=== PATIENT | female | born 1940 | race Caucasian/White ===

== ENCOUNTER 2017-08-05 11:18 | Inpatient (IN) | payer MEDICARE ==
--- NOTE | 2017-08-05 13:39 | RAD ---
FRONTAL RADIOGRAPH OF THE PELVIS: Date: 08-05-17 Comparison: None. History: Fall, right hip pain. FINDINGS: The right femoral neck is foreshortened suggesting an impaction fracture. There is heterotopic bone a nd osteophyte formation in the region of the greater trochanter on the right. The pelvic ring appears intact. Neither hip appears dislocated. No widening of the sacroiliac joints or pubic symphysis. IMPRESSION: Findings suggesting an impaction fracture or the right femoral neck. The configuration is somewhat di fficult to elucidate on this examination secondary to rotation and degenerative change. A CT examinat ion may be beneficial to evaluate further. POS: [facility]
--- NOTE | 2017-08-05 13:41 | RAD ---
TWO VIEWS RIGHT HIP: Date: 08-05-17 Comparison: None. History: Fall, pain. FINDINGS: There is abnormal obliquely oriented lucency on frontal imaging in the region of the femoral neck and at the medial base of the greater trochanter on the right, suspicious for impaction fracture. Of not e, detailed assessment is limited secondary to heterotopic bone and degenerative osteophyte formation in the region of the greater trochanter. No evidence for dislocation. IMPRESSION: Findings suspicious for a femoral neck fracture. CT examination is suggested for full characterizatio n. POS: [facility]
--- NOTE | 2017-08-05 13:43 | RAD ---
RIGHT TIBIA AND FIBULA TWO VIEWS: History: Fall. Comparison: None. FINDINGS: Bones are osteopenic/osteoporotic. No displaced fracture of the tibia or fibula is appreciated. IMPRESSION: No displaced tibia or fibula fracture. POS: C
--- NOTE | 2017-08-05 13:43 | RAD ---
RIGHT HUMERUS TWO VIEWS: History: Fall. Comparison: 2012 FINDINGS: Humerus appears to be intact. No displaced fracture. Subacromial osteophyte is similar. IMPRESSION: No fracture of the humerus. POS: C
--- NOTE | 2017-08-05 13:51 | RAD ---
RIGHT FEMUR TWO VIEWS: History: Fall. Comparison: None. FINDINGS: Please see pelvic radiograph. There appears to be an intertrochanteric fracture of the right femur w ith minimal angulation. Remainder of the femur is intact. IMPRESSION: Intertrochanteric fracture of the right femur with minimal angulation.
[2017-08-05 14:27] LABS: #Eosinphils 0.1 thou/uL (0.0-0.7); #Monocytes 0.9 thou/uL (0.11-0.59); %Basophils 0.1 % (0.0-1.0); %Eosinophils 0.5 % (0.0-10.0); %Lymphocytes 7.5 % (21.0-51.0); %Monocytes 7.3 % (0.0-10.0); %Neutrophils 84.6 % (42.0-75.0); Hemoglobin 12.5 g/dL (12.0-16.0); Mean Corpuscular HGB CONC 33.4 g/dL (32.0-36.0); Mean Corpuscular Hemoglobin 32.1 pg (27.0-31.0); Mean Corpuscular Volume 96.1 fl (81.0-99.0); Mean Platelet Volume 7.3 fL (7.4-10.4); Platelet Count 181 thou/uL (130-400); RBC Distribution Width 11.7 % (11.5-14.5); Red Blood Cell (RBC) Count 3.89 mill/uL (4.20-5.40)
[2017-08-05 14:50] LABS: ALT (SGPT) 15 U/L (8-55); AST (SGOT) 17 U/L (5-34); Alkaline Phosphatase 63 U/L (40-150); Anion Gap 14 mmol/L (10-20); BUN (Urea Nitrogen) 14 mg/dL (9.8-20.1); Bilirubin, Total 0.3 mg/dL (0.2-1.2); Calc. Creatinine Clearance 0 mL/min (70-130); Calcium 10.1 mg/dL (7.8-10.44); Carbon Dioxide 26 mmol/L (23-31); Chloride 101 mmol/L (98-107); Estimated GFR-MDRD 76; Globulin 3.1 g/dL (2.4-3.5); Glucose 129 mg/dL (83-110); Potassium 4.1 mmol/L (3.5-5.1); Protein, Total 7.1 g/dL (6.0-8.3); Sodium 137 mmol/L (136-145)
[2017-08-05] MEDS ORDERED: Morphine 4 MG/ML VIAL IV PRN (15:13)
[2017-08-05] MEDS ORDERED: Morphine 4 MG/ML VIAL SLOW IVP PRN (15:13)
[2017-08-05] MEDS ORDERED: hydrALAZINE 20 MG/ML VIAL SLOW IVP PRN (15:13)
[2017-08-05] MEDS ORDERED: Dextrose 50% Abboject 50 ML SYRINGE SLOW IVP PRN (15:13)
[2017-08-05] MEDS ORDERED: Dextrose 5% in Water 1,000 ML IV PRN (15:13)
[2017-08-05] MEDS ORDERED: Ondansetron ODT 4 MG TAB PO PRN (15:13)
[2017-08-05 15:37] LABS: Magnesium 1.7 mg/dL (1.6-2.6); Phosphorus 2.8 mg/dL (2.3-4.7)
--- NOTE | 2017-08-05 16:19 | HP ---
DATE OF ADMISSION: 08/05/2017 ADMITTING PHYSICIAN: Dr. Capone. CONSULTING PHYSICIAN: Dr. Abbasi. CHIEF COMPLAINT: Right hip fracture. HISTORY OF PRESENT ILLNESS: Mrs. Carney is a 77-year-old female who was at [employer] today when she reports that she stubbed her toe and lost her balance and fell landing on her right side. She report s that she landed on her right hip as well as her right arm and felt immediate pain in both. She rep orts her pain as 8/10 in her right arm and 3-4/10 in her right groin. She was brought by ground EMS to [place] [facility] [facility] ED where she was evaluated and found to have a right impacted femoral neck fracture. X -ray of her right humerus was negative. The patient also reported some pain initially in her distal right leg. X-ray of this was negative as well. Orthopedic Surgery was consulted and Trauma Services was asked to admit. Patient denies head injury or loss of consciousness. She denies abdominal pain, chest pain, shortnes s of breath. She denies syncope or presyncope. PAST MEDICAL HISTORY: Patient reports past medical history of type 2 diabetes, hypertension, hyperli pidemia, and hypothyroidism. The patient also reports a history of gastrointestinal bleeding x2. HOME MEDICATIONS: Patient reports the following home medications; Crestor 10 mg once daily, metformi n 1000 mg once daily, diltiazem 240 mg once daily, Lasix 20 mg once daily, potassium chloride 20 mEq once daily, Synthroid 100 mcg once daily, and lisinopril 5 mg daily. PAST SURGICAL HISTORY: The patient reports a history of thyroidectomy, breast biopsy, appendectomy, cholecystectomy as well as hysterectomy. She also reports a history of having a bleeding vessel caut erized during a colonoscopy and another one cauterized during upper endoscopy. SOCIAL HISTORY: The patient denies alcohol or drug use. The patient reports a [id number] history of smoking. She reports quitting in 2013. FAMILY HISTORY: Significant for father with Alzheimer's disease. Mother's history is noncontributor y. PSYCHIATRIC HISTORY: The patient denies any significant psychiatric history. ALLERGIES: The patient reports an allergy to CELEBREX. She reports that this medication makes her i tch. REVIEW OF SYSTEMS: A 10 point review of systems was negative except as mentioned in the HPI. PHYSICAL EXAMINATION: VITAL SIGNS: BP 127/61, pulse 80, respirations 19, O2 sat 96% on 2 liters. GENERAL APPEARANCE: Patient is a late middle-aged adult female lying in bed. She is in no acute dis tress. HEENT: Normocephalic and atraumatic. EYES: Pupils are equal, round, and reactive to light and acco mmodation. Extraocular movements intact. EARS: Atraumatic. NOSE: Nares patent. No blood or disc harge. MOUTH: Oropharynx is pink and moist. Dentition is intact. NECK: She has no cervical spine tenderness. She does have some tenderness to palpation of the muscl es laterally on the right side of her neck. She feels pain when she turns her head to the right. He r trachea is midline. RESPIRATORY: Her breath sounds are clear to auscultation bilaterally with normal effort. CARDIOVASCULAR: She has regular S1, S2. No murmurs, gallops or rubs. Normal rate and rhythm. ABDOMEN: Soft, nontender, nondistended. She has active bowel sounds. EXTREMITIES: Patient is neurovascularly intact x4. Her radial and dorsalis pedis pulses are 2+ bila terally. Upper and lower extremity strength is 5/5 bilaterally. She does have pain in her right hum erus with movement of her arm at the shoulder. She has no pain with movement of the arm at the elbow . She has no appreciable bony abnormality between the shoulder, elbow or humerus. None of these are tender to palpation. Her right leg is somewhat foreshortened and externally rotated. NEUROLOGIC: The patient has GCS of 15. She is alert and oriented x3. She has no focal deficits. LABORATORY DATA: Hematology: WBC is 13.0, hemoglobin 12.5, hematocrit 37.4, platelets are 181. Echo naya: Sodium 137, potassium 4.1, chloride 101, bicarbonate 26, BUN 14, creatinine 0.74, glucose 12 9. Her liver function tests are normal. IMAGING: X-ray of the humerus negative for fracture. X-ray of the right femur showing intertrochant lasha fracture of the right femur with minimal angulation. X-ray of the right tibia and fibula shows no displaced tibia or fibular fracture. X-ray of the right hip confirms a femoral neck fracture. Re commending a CT exam for full characterization. This is also confirmed with x-ray of the pelvis, whi is also recommending CT exam for further characterization. ASSESSMENT AND PLAN: 1. Status post mechanical fall from ground level. 2. Right intertrochanteric femur fracture. 3. Acute traumatic pain. 4. Right arm pain. 5. History of diabetes, present on admission. 6. History of hypertension, present on admission. 7. History of hypothyroidism. 8. History of gastrointestinal bleeding x2. PLAN: Plan will be to admit the patient to the surgical floor. She will likely go to the OR with Dr Elle Abbasi tomorrow. In the meantime, we will start her on a regular diet and make her n.p.o. after midnight with sips of water per medications. We will authorize patient's pain control; however, we will avoid NSAIDs given her history of GI bleeding. Postoperatively, she will need physical and occu pational therapy as well as a rehab screen. Gastritis and DVT prophylaxis will be initiated. Chemic al DVT prophylaxis will be withheld given history of a GI bleed. The patient was examined and discussed along with Dr. Capone in the ER. Dr. Capone agrees with the ass essment and plan.
[2017-08-05] MEDS ORDERED: Acetaminophen 1,000 MG in Premix Bag 1 BAG IVPB SCH (16:45)
[2017-08-05 17:03] LABS: INR-International Normal Ratio 1.1; PTT 31.1 SEC (22.9-36.1); Prothrombin Time 14.1 SEC (12.0-14.7)
[2017-08-05] MEDS: Sodium Chloride 0.9% 1,000 ML IV SCH (17:29)
[2017-08-05] MEDS: traMADol HCl 50 MG TAB PO SCH ×2 (17:47→23:20)
[2017-08-05] MEDS: Acetaminophen 500 MG TAB PO SCH ×2 (17:47→23:20)
[2017-08-05] MEDS: Morphine 4 MG/ML VIAL SLOW IVP PRN ×2 (17:57→20:39)
--- NOTE | 2017-08-05 19:40 | RAD ---
AP VIEW OF THE CHEST: 08/05/17 INDICATION: Fall. Preoperative chest radiograph. COMPARISON: None. FINDINGS: Lungs are clear. There are calcified lymph nodes in the right hilar region and mediastinum. There are vascular calcifications in the aortic arch. Heart size is normal. No pleural effusion or pneumothora x is evident. There is mild pleural parenchymal scarring involving both lung apices. IMPRESSION: No acute abnormality. POS: [facility]
[2017-08-05] MEDS: Famotidine 20 MG TAB PO SCH (19:53)
--- NOTE | 2017-08-05 19:56 | RAD ---
THREE VIEWS OF THE RIGHT SHOULDER: 08/05/17 INDICATION: Right shoulder pain after fall. COMPARISON: None. FINDINGS: There is a small rey of bone overlying the right greater tuberosity suspicious for focus of heterot opic ossification; however, a small greater tuberosity fracture cannot be entirely excluded. No addit ional acute osseous abnormality is evident. There is prominent inferior projecting acromial spur whic h may predispose the symptoms of impingement. There are calcified lymph nodes within the right hilar region and mediastinum. There is mild degenerative change of the glenohumeral and AC joint. IMPRESSION: 1. No definite acute osseous abnormality. 2. Ossific density overlying the right greater tuberosity is most suspicious for focus of hetero topic ossification. 3. Prominent inferior projecting acromial spur may predispose symptoms of impingement. 4. Findings of prior granulomatous disease. POS: [facility]
[2017-08-05] MEDS ORDERED: Prevnar 13-Val Conj/PF 0.5 ML SYRINGE IM ONE (20:00)
--- NOTE | 2017-08-05 22:28 | CON ---
DATE OF CONSULTATION: 08/05/2017 REQUESTING PHYSICIAN: Erik Capone D.O. CONSULTING PHYSICIAN: José Antonio Abbasi M.D. REASON FOR CONSULTATION: Right hip intertrochanteric fracture. HISTORY OF PRESENT ILLNESS: Florinda is a 77-year-old white female that was admitted to the trauma servi ce earlier today after she fell from a standing height, landing on her right side. She had a mechani masood fall remembers the events before during and after her fall. She had immediate onset of pain in t he right groin. Plain radiographs obtained in the emergency room demonstrated a vertical shear inter trochanteric fracture of the right hip extending from right mid cervical region down to the lesser tr ochanter with varus angulation. She has been admitted to the trauma service and our service was cons ulted for definitive orthopedic management of this problem. She also has right shoulder pain, second kamilah complaint and humeral plan films have been obtained, but no fracture has been identified. PAST MEDICAL HISTORY: Significant for diabetes type 2, hyperlipidemia, and hypothyroidism. PAST SURGICAL HISTORY: She has had thyroidectomy, cholecystectomy, appendectomy, and hysterectomy. PHYSICAL EXAMINATION: GENERAL: Well-nourished, well-developed female appearing stated age, no apparent distress or discomf ort. She is alert and oriented to person, place, time, and situation. Grossly nonfocal, appropriate with examiner. She is normocephalic, atraumatic. MUSCULOSKELETAL: Visual inspection of the right upper extremity demonstrates her to have pain with p alpation of the right shoulder and internal, external rotation, but is possible. She has good passiv e motion but provocative concordant pain in the right shoulder and brachium with motion of the right shoulder. There is no crepitus. There is no step-offs in the brachium and she is neurovascularly in tact in the right upper extremity, but again apprehensive with motion of the right shoulder. I see n o angular deformity and no significant bruising of the right upper arm and brachium. Visual inspection of the right lower extremity demonstrates her to have good neurovascular status wit h +2 distal pulses at the dorsalis pedis, posterior tibialis, and good full digital excursion of the right foot. I see no significant shortening of the right lower extremity, no gross external rotation . Range of motion of the right hip is not assessed due to known underlying fracture. There is no br uising around the buttock or around the groin. IMAGING STUDIES: Two views right humerus within normal limits, age appropriate, osteopenia is apprec iated. No fractures identified. AP pelvis and two view right hip demonstrates a vertical intertroch anteric fracture extending from about the mid cervical region superiorly down to the lesser trochante r on the right, varus angulation is noted. No significant shortening is noted. IMPRESSION: 1. Right intertrochanteric hip fracture. 2. Right shoulder pain with radiation of the right brachium consistent with possible acute rotator c uff tear. PLAN: 1. The risks, benefits, options, alternatives, and rationale for proceeding with right hip open vers us closed reduction with internal fixation to include dynamic hip screw versus trochanteric nail fixa tion has been explained in great detail with patient, she is ready to proceed. All questions were an swered. No guarantee of outcome stated or implied. 2. The patient has been placed on n.p.o. status after midnight already. 3. Three views right shoulder to include scapular Y were obtained. 4. Please see orders.
[2017-08-06] MEDS: Morphine 4 MG/ML VIAL SLOW IVP PRN ×5 (00:07→19:29)
--- NOTE | 2017-08-06 01:20 | PRG ---
DATE OF SERVICE: 08/06/2017 SUBJECTIVE: The patient is admitted to the hospital today status post ground level fall in which she sustained a right hip fracture. The patient is currently on the surgical floor. By nursing report, the patient is tolerating a diet. She will be n.p.o. after midnight and her pain is being controlle d. PHYSICAL EXAMINATION: VITAL SIGNS: Temperature is 99.0, heart rate 80, blood pressure 133/79, respirations 16, oxygen satu ration is 94% on 2 liters via nasal cannula. GENERAL: The patient is resting comfortably in bed. She is asleep. She appears to be in no distres s. ASSESSMENT AND PLAN: 1. Status post ground level fall. 2. Right femoral neck fracture. PLAN: Will be to make the patient n.p.o. after midnight. Continue supportive care and await final p lacement decision after surgery.
[2017-08-06] MEDS: Sodium Chloride 0.9% 1,000 ML IV SCH ×3 (01:46→22:18)
[2017-08-06 05:01] LABS: #Eosinphils 0.3 thou/uL (0.0-0.7); #Lymphocytes 1.4 thou/uL (1.20-3.40); #Monocytes 0.7 thou/uL (0.11-0.59); #Neutrophils 5.6 thou/uL (1.40-6.50); %Basophils 0.2 % (0.0-1.0); %Eosinophils 3.5 % (0.0-10.0); %Neutrophils 70.4 % (42.0-75.0); Hemoglobin 11.6 g/dL (12.0-16.0); Mean Corpuscular HGB CONC 33.2 g/dL (32.0-36.0); Mean Corpuscular Hemoglobin 31.9 pg (27.0-31.0); Mean Corpuscular Volume 96.3 fl (81.0-99.0); Mean Platelet Volume 7.6 fL (7.4-10.4); Platelet Count 144 thou/uL (130-400); RBC Distribution Width 11.8 % (11.5-14.5); Red Blood Cell (RBC) Count 3.62 mill/uL (4.20-5.40)
[2017-08-06 05:12] LABS: Anion Gap 12 mmol/L (10-20); BUN (Urea Nitrogen) 11 mg/dL (9.8-20.1); Calc. Creatinine Clearance 0 mL/min (70-130); Calcium 9.1 mg/dL (7.8-10.44); Carbon Dioxide 29 mmol/L (23-31); Chloride 102 mmol/L (98-107); Estimated GFR-MDRD Greater than 90; Glucose 97 mg/dL (83-110); Magnesium 1.8 mg/dL (1.6-2.6); Phosphorus 3.5 mg/dL (2.3-4.7); Sodium 139 mmol/L (136-145)
[2017-08-06] MEDS: Acetaminophen 500 MG TAB PO SCH ×3 (05:30→19:02)
[2017-08-06] MEDS: traMADol HCl 50 MG TAB PO SCH ×3 (05:30→19:02)
[2017-08-06] MEDS: Famotidine 20 MG TAB PO SCH ×2 (09:37→19:30)
[2017-08-06] MEDS ORDERED: PROPOFOL 200 MG/20 ML VIAL ONE (16:57)
[2017-08-06] MEDS ORDERED: CEFAZOLIN/Water 2 GM/20 ML SYRINGE ONE (16:57)
[2017-08-06] MEDS ORDERED: Lidocaine 1% PF 5 ML VIAL ONE (16:57)
[2017-08-06] MEDS ORDERED: Promethazine HCl 25 MG/ML VIAL SLOW IVP PRN (18:03)
[2017-08-06] MEDS ORDERED: Ondansetron HCl/PF 4 MG/2 ML Vial IVP PRN (18:03)
[2017-08-06] MEDS ORDERED: Promethazine HCl 25 MG/ML VIAL IM PRN (18:03)
--- NOTE | 2017-08-06 19:17 | RAD ---
TWO VIEWS OF THE RIGHT HIP: 08/06/17 INDICATION: History of open reduction and internal fixation. COMPARISON: Prior study dated 08/05/17. FINDINGS: Since the comparison examination there has been interval placement of hip screw and side plate. Fract ure alignment is near anatomic. The instrumentation projects in the expected position. Total fluorosc opic time was 22.5 seconds with a total exposure of 3.17 mGy. IMPRESSION: ORIF of the right hip. POS: [facility]
--- NOTE | 2017-08-06 19:19 | PRG ---
DATE OF SERVICE: 08/06/2017 ATTENDING PHYSICIAN: Dr. Capone. SUBJECTIVE: Ms. Carney is a 77-year-old female who was [place] . She was evaluated and found to have a right hip fracture. She is scheduled to go to the OR today. On exam this morning, she reports that her pain is well controlled and vocalizes no complaints. OBJECTIVE: VITAL SIGNS: Blood pressure 132/74, pulse 90, temperature 97.9, respirations 20, O2 sat 90% on 2 lit ers. GENERAL APPEARANCE: The patient is a late middle-aged adult female, lying in bed. She is in no acut e distress. HEENT: Normocephalic and atraumatic. RESPIRATORY: Breath sounds are clear to auscultation bilaterally with normal effort. CARDIOVASCULAR: She has regular rate and rhythm. No murmurs, gallops or rubs. ABDOMEN: Soft, nontender, nondistended. She has active bowel sounds. EXTREMITIES: She is neurovascularly intact x4. NEUROLOGIC: She is GCS of 15 this morning. She is alert and oriented x3. She has no focal deficits . LABORATORY DATA: Her CBC is significant for white blood cells of 8.0, hemoglobin 11.6, hematocrit of 34.9, platelets of 144. Her chemistry is essentially normal. IMAGING: There are no images to review today. ASSESSMENT: 1. Status post mechanical fall from ground level. 2. Right intertrochanteric femur fracture. 3. Acute traumatic pain. 4. Right arm pain. 5. History of diabetes, present on admission. 6. History of hypertension, present on admission. 7. History of hypothyroidism, present on admission. 8. History of gastrointestinal bleeding x2. PLAN: 1. OR today with Dr. Abbasi. 2. Postoperatively, she can begin a consistent carbohydrate diet. 3. Optimize pain control postoperatively. 4. Encourage incentive spirometry and pulmonary toileting. 5. We will need PT and OT for help with mobilization. 6. Chemical DVT prophylaxis when okay with Orthopedic Surgery. The patient was seen and examined along with Dr. Erik Capone on rounds who agrees with the assessme nt and plan.
--- NOTE | 2017-08-06 23:42 | OP ---
DATE OF OPERATION: 08/06/2017 PROCEDURE: Open reduction and internal fixation using dynamic hip screw, right femoral neck fracture . PREOPERATIVE DIAGNOSIS: Right femoral neck fracture. POSTOPERATIVE DIAGNOSIS: Right femoral neck fracture. COMPLICATIONS: None. ESTIMATED BLOOD LOSS: 100 mL SURGEON: José Antonio Abbasi M.D. BOTTOM POLISHER: Crow Valentin PA-C. INDICATIONS: Ms. Carney is a 77-year-old female who fell. She fractured her right femoral neck. Sh e was indicated for open reduction and internal fixation to restore anatomic alignment, promote heali ng and promote early mobilization. Risks have been reviewed. She elected to proceed with the operat ion. IMPLANTS: A [employer]ynthes 3-hole 135 degree dynamic hip screw and plate were used. DESCRIPTION OF PROCEDURE: Ms. Carney was identified in the preoperative holding area. Her correct e xtremity was marked. She was carried to the operating room. She was positioned supine. General ane sthesia was induced. A multidisciplinary timeout was performed. The right lower extremity was prepp ed and draped in sterile fashion. We began the procedure with a lateral incision. We dissected down through the subcutaneous tissues t o the fascia. The fascia was opened. We then exposed the lateral cortex of the femur. We then plac ed our 135-degree guide. At this point, we placed the guidepin in the centered position of the femor al head. We then over reamed the guidewire. We measured an appropriate length, which was 100 mm. W e then placed our hip screw using intraoperative x-ray. Next, we impacted our side plate. Three scr ews were placed in the plate. We thoroughly irrigated with copious lavage. We then closed with a 0 Vicryl suture, 2-0 Vicryl suture and ray for the skin were used. The patient was taken to the re covery room in good condition without complication.
[2017-08-07] MEDS: CEFAZOLIN/Water 2 GM/20 ML SYRINGE SLOW IVP SCH ×2 (01:02→08:26)
[2017-08-07] MEDS: traMADol HCl 50 MG TAB PO SCH ×5 (01:03→23:34)
[2017-08-07] MEDS: Acetaminophen 500 MG TAB PO SCH ×5 (01:03→23:33)
[2017-08-07] MEDS: Famotidine 20 MG TAB PO SCH ×2 (08:24→21:40)
[2017-08-07] MEDS: Rosuvastatin 10 MG TAB PO SCH (08:24)
[2017-08-07] MEDS: Potassium Chloride 20 MEQ TAB PO SCH (08:24)
[2017-08-07] MEDS: Enoxaparin Sodium 40 MG/0.4 ML SYRINGE SC SCH (08:25)
[2017-08-07] MEDS: Sodium Chloride 0.9% 1,000 ML IV SCH (08:26)
[2017-08-07] MEDS: Lisinopril 5 MG TAB PO SCH (08:26)
[2017-08-07] MEDS: Furosemide 20 MG TAB PO SCH (08:26)
[2017-08-07] MEDS: traMADol HCl 50 MG TAB PO PRN ×2 (10:42→16:44)
[2017-08-07] MEDS: Insulin Regular 300 UNITS/3 ML VIAL SC PRN (12:14)
--- NOTE | 2017-08-07 14:41 | PRG ---
DATE OF SERVICE: 08/07/2017 ATTENDING PHYSICIAN: Erik Capone DO SUBJECTIVE: Ms. Carney is a 77-year-old female, who was admitted 2 days ago [place] She was found to have a right hip fracture. She was taken to the OR one day ago for fixation of the hip fracture. She has been managed on the surgical floor. The pain has been well c ontrolled. She has been mobilizing with physical therapy. OBJECTIVE: VITAL SIGNS: Temperature 98.2, pulse 83, blood pressure 121/72, respirations 14, O2 sat 93% on 3 lit ers nasal cannula. GENERAL: Well-developed, well-nourished female lying in bed, in no acute distress, nontoxic appearin g. HEENT: Atraumatic, normocephalic. CARDIOVASCULAR: Regular rate and rhythm. Heart sounds normal. CHEST/PULMONARY: Bilateral breath sounds clear. No respiratory distress. Chest movement is symmetr ical. ABDOMEN: Soft, nontender, nondistended. Bowel sounds normal. EXTREMITIES: Moves all extremities well. Cap refill brisk. 2+ pulses in all extremities. Surgical dressing is intact, right hip. NEUROLOGIC: GCS of 15. A and O x3. ASSESSMENT: 1. Status post ground level fall. 2. Right femoral neck fracture. 3. Postoperative day #1, status post open reduction and internal fixation right femoral neck fractur e. 4. Acute traumatic pain, improving. 5. History of type 2 diabetes, present on admission. 6. History of hypertension, present on admission. 7. History of hyperlipidemia, present on admission. 8. History of hypothyroidism, present on admission. PLAN: 1. Continue mobilizing with physical and occupational therapy. 2. Restart home medications as appropriate. 3. Transition to oral analgesia for pain control. 4. Discontinue IV fluids. The patient is tolerating regular diet. 5. Antibiotics per Orthopedic Service. 6. Lovenox for DVT prophylaxis. 7. Pepcid for PUD prophylaxis. 8. Case management for discharge planning. The patient was seen and examined with Dr. Capone, who agrees with plan.
[2017-08-07] MEDS: BIOTENE MOUTH SPRAY 44.3 ML MM PRN (21:42)
[2017-08-08] MEDS: traMADol HCl 50 MG TAB PO SCH ×3 (05:06→17:53)
[2017-08-08] MEDS: Levothyroxine Sodium 100 MCG TAB PO SCH (05:07)
[2017-08-08] MEDS: Acetaminophen 500 MG TAB PO SCH ×3 (05:07→17:53)
[2017-08-08] MEDS ORDERED: Levothyroxine Sodium 112 MCG TAB PO SCH (06:00)
[2017-08-08 06:08] LABS: Anion Gap 8 mmol/L (10-20); BUN (Urea Nitrogen) 8 mg/dL (9.8-20.1); Calc. Creatinine Clearance 107 mL/min (70-130); Calcium 9.2 mg/dL (7.8-10.44); Carbon Dioxide 33 mmol/L (23-31); Chloride 100 mmol/L (98-107); Estimated GFR-MDRD Greater than 90; Glucose 127 mg/dL (83-110); Magnesium 1.7 mg/dL (1.6-2.6); Phosphorus 2.2 mg/dL (2.3-4.7); Potassium 3.6 mmol/L (3.5-5.1); Sodium 137 mmol/L (136-145)
[2017-08-08 08:19] LABS: Hemoglobin 9.7 g/dL (12.0-16.0); Mean Corpuscular HGB CONC 32.2 g/dL (32.0-36.0); Mean Corpuscular Hemoglobin 31.4 pg (27.0-31.0); Mean Corpuscular Volume 97.4 fl (81.0-99.0); Mean Platelet Volume 7.9 fL (7.4-10.4); Platelet Count 115 thou/uL (130-400); RBC Distribution Width 11.6 % (11.5-14.5); Red Blood Cell (RBC) Count 3.07 mill/uL (4.20-5.40); White Blood Cell (WBC) Count 6.4 thou/uL (4.8-10.8)
[2017-08-08] MEDS: Lisinopril 5 MG TAB PO SCH (08:56)
[2017-08-08] MEDS: Furosemide 20 MG TAB PO SCH (08:56)
[2017-08-08] MEDS: Enoxaparin Sodium 40 MG/0.4 ML SYRINGE SC SCH (08:56)
[2017-08-08] MEDS: Rosuvastatin 10 MG TAB PO SCH (08:56)
[2017-08-08] MEDS: Famotidine 20 MG TAB PO SCH ×2 (09:07→21:15)
[2017-08-08] MEDS: Potassium Chloride 20 MEQ TAB PO SCH (09:11)
[2017-08-08 09:21] LABS: #Eosinphils 0.2 thou/uL (0.0-0.7); #Lymphocytes 0.8 thou/uL (1.20-3.40); #Monocytes 0.5 thou/uL (0.11-0.59); #Neutrophils 4.8 thou/uL (1.40-6.50); %Basophils 0.3 % (0.0-1.0); %Eosinophils 3.4 % (0.0-10.0); %Lymphocytes 12.7 % (21.0-51.0); %Monocytes 8.6 % (0.0-10.0); PLT Morphology Comment Appears Decreased
--- NOTE | 2017-08-08 17:53 | PRG ---
DATE OF SERVICE: 08/08/2017 ATTENDING PHYSICIAN: Erik Capone D.O. SUBJECTIVE: Ms. Carney is a 77-year-old female who was admitted 3 days ago after tripping and fallin g at the [facility]. She was found to have a right hip fracture. She was taken to the OR 2 days ago for fi xation of his hip fracture. She has been managed on the surgical floor. The pain has been well cont rolled. She has been mobilizing with physical and occupational therapy. OBJECTIVE: VITAL SIGNS: Temperature 98.2, pulse 69, respirations 12, O2 sat 95% on 3 liters nasal cannula, bloo d pressure 97/61. GENERAL: Well-developed, well-nourished female in no acute distress, lying in bed, nontoxic appearin g. HEENT: Atraumatic, normocephalic. CARDIOVASCULAR: Regular rate and rhythm. Heart sounds normal. PULMONARY: Bilateral breath sounds clear. No respiratory distress. ABDOMEN: Soft, nontender, nondistended. Bowel sounds normal. EXTREMITIES: Moves all extremities well. Cap refill brisk 2+ pulses all extremities. Right hip tania gical incision. NEUROLOGIC: GCS 15, awake, alert, oriented x3. ASSESSMENT: 1. Status post ground level fall. 2. Right femoral neck fracture. 3. Postoperative day 2, status post open reduction and internal fixation, right femoral neck fractur e. 4. Acute traumatic pain, improving, well controlled. 5. History of type 2 diabetes, present on admission. 6. History of hyperlipidemia, present on admission. 7. History of hypothyroidism, present on admission. PLAN: 1. Discontinue Weber catheter. 2. Continue mobilizing with physical and occupational therapy. 3. Continue oral analgesia. 4. Continue regular diet. 5. Case management for discharge planning. Anticipate patient to discharge to rehab in the next 1-2 days. The patient was seen and examined with Dr. Capone who agrees with plan.
[2017-08-08] MEDS: Insulin Regular 300 UNITS/3 ML VIAL SC PRN (17:55)
[2017-08-08] MEDS: BIOTENE MOUTH SPRAY 44.3 ML MM PRN (21:16)
[2017-08-09] MEDS: traMADol HCl 50 MG TAB PO SCH ×4 (00:17→17:36)
[2017-08-09] MEDS: Acetaminophen 500 MG TAB PO SCH ×4 (00:18→17:36)
[2017-08-09] MEDS: Levothyroxine Sodium 100 MCG TAB PO SCH (05:25)
--- NOTE | 2017-08-09 07:59 | PRG ---
DATE OF SERVICE: 08/09/2017 ATTENDING PHYSICIAN: Dr. Erik Capone. SUBJECTIVE: Ms. Carney is a 77-year-old female who was admitted 4 days ago [place]in [place]. She was found to have a right hip fracture. She was taken to the OR 3 days ago for f ixation of this hip fracture. She has been managed on the surgical floor. The pain has been well co ntrolled. She has been mobilizing with physical and occupational therapy. She is seen this morning and reports that she has had no pain overnight. [facility] is [facility]. Case management continues to follow. OBJECTIVE: VITAL SIGNS: Temperature 98.8, pulse 77, respirations 14, O2 sat 92% on 1.5 liters nasal cannula, bl ood pressure 112/69. GENERAL: Well-developed, well-nourished female in no acute distress, lying in bed, nontoxic appearin g. HEENT: Atraumatic, normocephalic. CARDIOVASCULAR: Regular rate and rhythm. Heart sounds normal. PULMONARY: Bilateral breath sounds clear. No respiratory distress. ABDOMEN: Soft, nontender, nondistended. Bowel sounds normal. EXTREMITIES: Moves all extremities well. Cap refill brisk. A 2+ pulses in all extremities. NEUROLOGIC: GCS 15. Awake, alert, and oriented x3. ASSESSMENT: 1. Status post ground level fall. 2. Right femoral neck fracture. 3. Postoperative day #3, status post open reduction internal fixation right femoral neck fracture. 4. Acute traumatic pain, improving, well controlled. 5. History of type 2 diabetes, present on admission. 6. History of hyperlipidemia, present on admission. 7. History of hypothyroidism, present on admission. PLAN: 1. Monitor laboratory studies and replace electrolytes as indicated. 2. Continue mobilizing with physical and occupational therapy. 3. Continue oral analgesia as scheduled. 4. Continue regular diet. 5. Case management continues to follow. Anticipate patient will discharged to rehab in the next 1-2 days. The patient was reviewed with Dr. Capone, attending trauma surgeon, who agrees with plan.
[2017-08-09 08:03] LABS: Anion Gap 9 mmol/L (10-20); BUN (Urea Nitrogen) 8 mg/dL (9.8-20.1); Calc. Creatinine Clearance 103 mL/min (70-130); Calcium 9.2 mg/dL (7.8-10.44); Carbon Dioxide 35 mmol/L (23-31); Chloride 99 mmol/L (98-107); Estimated GFR-MDRD Greater than 90; Glucose 143 mg/dL (83-110); Magnesium 1.9 mg/dL (1.6-2.6); Phosphorus 1.6 mg/dL (2.3-4.7); Potassium 3.6 mmol/L (3.5-5.1); Sodium 139 mmol/L (136-145)
[2017-08-09] MEDS: Furosemide 20 MG TAB PO SCH (08:27)
[2017-08-09] MEDS: Famotidine 20 MG TAB PO SCH ×2 (08:27→21:28)
[2017-08-09] MEDS: Enoxaparin Sodium 40 MG/0.4 ML SYRINGE SC SCH (08:27)
[2017-08-09] MEDS: Potassium Chloride 20 MEQ TAB PO SCH (08:27)
[2017-08-09] MEDS: Lisinopril 5 MG TAB PO SCH (08:27)
[2017-08-09] MEDS: Rosuvastatin 10 MG TAB PO SCH (08:27)
[2017-08-09] MEDS: BIOTENE MOUTH SPRAY 44.3 ML MM PRN (21:34)
[2017-08-10] MEDS: traMADol HCl 50 MG TAB PO SCH ×4 (00:16→17:17)
[2017-08-10] MEDS: Acetaminophen 500 MG TAB PO SCH ×4 (00:17→17:17)
[2017-08-10] MEDS: Levothyroxine Sodium 100 MCG TAB PO SCH (05:33)
[2017-08-10 05:35] LABS: Anion Gap 10 mmol/L (10-20); BUN (Urea Nitrogen) 7 mg/dL (9.8-20.1); Calc. Creatinine Clearance 105 mL/min (70-130); Calcium 9.4 mg/dL (7.8-10.44); Carbon Dioxide 33 mmol/L (23-31); Chloride 101 mmol/L (98-107); Estimated GFR-MDRD Greater than 90; Glucose 156 mg/dL (83-110); Potassium 3.6 mmol/L (3.5-5.1); Sodium 140 mmol/L (136-145)
[2017-08-10 05:36] LABS: Phosphorus 1.9 mg/dL (2.3-4.7)
[2017-08-10] MEDS: Famotidine 20 MG TAB PO SCH ×2 (09:14→21:42)
[2017-08-10] MEDS: Rosuvastatin 10 MG TAB PO SCH (09:14)
[2017-08-10] MEDS: Potassium Chloride 20 MEQ TAB PO SCH (09:15)
[2017-08-10] MEDS: Lisinopril 5 MG TAB PO SCH (09:15)
[2017-08-10] MEDS: Enoxaparin Sodium 40 MG/0.4 ML SYRINGE SC SCH (09:15)
[2017-08-10] MEDS: Furosemide 20 MG TAB PO SCH (09:15)
[2017-08-10 13:11] VITALS: BMI 28.3
[2017-08-10] MEDS: Insulin Regular 300 UNITS/3 ML VIAL SC PRN (17:17)
--- NOTE | 2017-08-10 19:56 | PRG ---
DATE OF SERVICE: 08/10/2017 ATTENDING PHYSICIAN: Erik Capone DO SUBJECTIVE: Mrs. Carney is a 77-year-old female, who was admitted on the [place]pping [place] the mall. She was found to have a right hip fracture. She is now postop day #4, status post open reduct ion and internal fixation with Dr. Abbasi. Postoperatively, she has remained hemodynamically stab le and with adequate pain control. This morning on exam, she vocalizes no complaints. OBJECTIVE: VITAL SIGNS: Blood pressure 126/68, pulse 72, temperature 98.3, respirations 16, O2 sat 92% on 2 lit ers. GENERAL APPEARANCE: The patient is a middle-aged adult female, in no acute distress. HEENT: Normocephalic and atraumatic. RESPIRATORY: Breath sounds are clear to auscultation bilaterally with normal effort. CARDIOVASCULAR: She has a regular rate and rhythm. No murmurs, gallops or rubs. ABDOMEN: Soft, nontender, nondistended. She has active bowel sounds. EXTREMITIES: She is neurovascularly intact x4. NEUROLOGIC: She has a GCS of 15 this morning. She is alert and oriented x3. She has no focal defic its. LABORATORY DATA: CBC significant for WBCs of 6.4, hemoglobin 9.7, hematocrit 29.9, platelets 115. C hemistry: Sodium 140, potassium 3.6, chloride 101, bicarbonate 33, BUN 7, creatinine 0.54, glucose 1 56, calcium 9.4, phosphorus 1.9, and magnesium 2.0. IMAGING: There are no images to review today. ASSESSMENT: 1. Status post mechanical fall from ground level. 2. Right intertrochanteric femur fracture. 3. Acute traumatic pain. 4. Right arm pain. 5. History of diabetes, present on admission. 6. History of hypertension, present on admission. 7. History of hypothyroidism, present on admission. 8. History of gastrointestinal bleeding x2. PLAN: 1. PT and OT for mobilization. 2. Lovenox for chemical DVT prophylaxis. 3. Continue to manage pain control and encourage incentive spirometry. 4. Case management is following for discharge planning. Currently, awaiting rehab approval. This patient was seen and examined along Dr. Capone on rounds, who agrees with the assessment and plan .
[2017-08-10] MEDS: Senokot S 8.6-50 MG TAB PO SCH (21:42)
[2017-08-11] MEDS: Acetaminophen 500 MG TAB PO SCH ×4 (00:33→18:03)
[2017-08-11] MEDS: traMADol HCl 50 MG TAB PO SCH ×4 (00:33→18:03)
--- NOTE | 2017-08-11 00:43 | PRG ---
DATE OF SERVICE: 08/10/2017 SUBJECTIVE: A 77-year-old white female postop day #4, status post open reduction internal fixation h ip fracture repair after a ground level fall. The patient has done well postoperatively and is curre ntly awaiting discharge planning/insurance approval. Upon my evaluation this evening, she vocalized no complaint. OBJECTIVE: VITAL SIGNS: Reviewed and stable. GENERAL: The patient is resting in bed, in no acute distress. LUNGS: Breathing is nonlabored. She is on 2 liters nasal cannula. ABDOMEN: Soft, nontender, nondistended. EXTREMITIES: Moves all extremities. NEUROLOGIC: No focal deficit is noted. ASSESSMENT AND PLAN: As documented in daily progress note. Continue care as ordered. Continue to m onitor. Importance of incentive spirometry and pulmonary toileting discussed with patient who vocali zed her understanding.
[2017-08-11 05:16] LABS: Anion Gap 7 mmol/L (10-20); BUN (Urea Nitrogen) 9 mg/dL (9.8-20.1); Calc. Creatinine Clearance 105 mL/min (70-130); Calcium 9.7 mg/dL (7.8-10.44); Carbon Dioxide 36 mmol/L (23-31); Chloride 99 mmol/L (98-107); Estimated GFR-MDRD Greater than 90; Glucose 149 mg/dL (83-110); Phosphorus 2.8 mg/dL (2.3-4.7); Potassium 3.9 mmol/L (3.5-5.1); Sodium 138 mmol/L (136-145)
[2017-08-11] MEDS: Levothyroxine Sodium 100 MCG TAB PO SCH (06:29)
[2017-08-11] MEDS ORDERED: Potassium Chloride 20 MEQ/100 ML PREMIX BAG IVPB SCH (08:00)
[2017-08-11] MEDS: Polyethylene Glycol 3350 17 GM Packet PO SCH (09:12)
[2017-08-11] MEDS: Famotidine 20 MG TAB PO SCH ×2 (09:13→20:37)
[2017-08-11] MEDS: Lisinopril 5 MG TAB PO SCH (09:13)
[2017-08-11] MEDS: Senokot S 8.6-50 MG TAB PO SCH ×2 (09:13→20:37)
[2017-08-11] MEDS: Rosuvastatin 10 MG TAB PO SCH (09:13)
[2017-08-11] MEDS: Enoxaparin Sodium 40 MG/0.4 ML SYRINGE SC SCH (09:13)
[2017-08-11] MEDS ORDERED: Potassium Chloride 20 MEQ TAB PO SCH (09:15)
[2017-08-11] MEDS: Bisacodyl 10 MG SUPP PR SCH (09:22)
[2017-08-11] MEDS: Potassium Chloride 20 MEQ TAB PO SCH (09:24)
[2017-08-11] MEDS: Sodium Chloride 0.9% 250 ML 250 ML IVPB SCH ×2 (09:28→10:06)
--- NOTE | 2017-08-11 16:53 | PRG ---
DATE OF SERVICE: 08/11/2017 ATTENDING PHYSICIAN: Dr. Capone. SUBJECTIVE: Mrs. Carney is a 77-year-old female, who was admitted to the surgical floor after sustai ehsan a right hip fracture, for which she is now postop day #5, status post open reduction and interna l fixation. Postoperatively, she has remained hemodynamically stable and with adequate pain control. She is currently awaiting a rehab placement. This morning, on exam, she vocalizes no complaints. OBJECTIVE: VITAL SIGNS: BP 121/75, pulse 69, temperature 97.6, respirations 18, O2 sat 94% on 2 liters. GENERAL APPEARANCE: Patient is a middle-aged adult female in no acute distress. HEENT: Normocephalic and atraumatic. RESPIRATORY: Breath sounds clear to auscultation bilaterally with normal effort. CARDIOVASCULAR: Shows a regular rate and rhythm. No murmurs, gallops, or rubs. ABDOMEN: Soft, nontender, nondistended. She has active bowel sounds. EXTREMITIES: She is neurovascularly intact x4. NEUROLOGIC: Her GCS is 15 this morning. She is alert and oriented x3. She has no focal deficits. LABORATORY DATA: Today's chemistries significant for sodium 138, potassium 3.9, chloride 99, bicarbo ila 36, BUN 9, creatinine 0.54, glucose 149, calcium 9.7, phosphorus 2.8, magnesium 2.0. IMAGING: There are no images to review today. ASSESSMENT: 1. Status post mechanical fall from ground level. 2. Right intertrochanteric femur fracture, status post open reduction and internal fixation. 3. Acute traumatic pain. 4. Contraction alkalosis. 5. Right arm pain. 6. History of diabetes, present on admission. 7. History of hypertension, present on admission. 8. History of hypothyroidism, present on admission. 9. History of gastrointestinal bleeding x2, present on admission. PLAN: 1. Continue PT and OT for mobilization. Case management is following for help with discharge planni jv. The patient currently just awaiting approval for rehabilitation. 2. We will hold the patient's Lasix today given her alkalosis, which is likely the result of her cesar ly diuresis. We will replete potassium as well. Also, encouraged free water intake. 3. Bowel medications for help with bowel function. 4. Lovenox for deep vein thrombosis prophylaxis. 5. We will continue to optimize pain control and encouraged incentive spirometry. This patient was seen and examined with Dr. Capone on rounds, who agrees with the assessment and plan.
[2017-08-11] MEDS: Insulin Regular 300 UNITS/3 ML VIAL SC PRN (22:13)
[2017-08-12] MEDS: traMADol HCl 50 MG TAB PO SCH ×5 (00:47→23:02)
[2017-08-12] MEDS: Acetaminophen 500 MG TAB PO SCH ×5 (00:47→23:02)
--- NOTE | 2017-08-12 01:30 | PRG ---
DATE OF SERVICE: 08/11/2017 SUBJECTIVE: Ms. Carney is a 77-year-old female, who is postoperative day #5 status post ORIF hip fra cture after a ground level fall. She has done well postoperatively. She has been waiting for [facility] ent in inpatient rehab pending insurance approval. Pain has been well controlled. She has no compla int. OBJECTIVE: VITAL SIGNS: Temperature 98, pulse 87, respirations 16, O2 sat 93% on room air, blood pressure 146/7 6. GENERAL: Well-nourished, well-developed female, sitting up in chair, in no acute distress. EXTREMITIES: Moves all extremities. Cap refill brisk. Neurovascularly intact. NEUROLOGIC: No focal deficit. GCS is 15. Awake, alert and oriented x3. ASSESSMENT: 1. Status post ground level fall. 2. Right hip fracture, status post repair. 3. Currently pending rehab acceptance. PLAN: 1. Continue current care as ordered. 2. Continue mobilizing with physical and occupational therapy. 3. Continue oral analgesia. 4. The patient is stable and medically cleared to discharge to rehab when we get insurance approval.
[2017-08-12] MEDS: Levothyroxine Sodium 100 MCG TAB PO SCH (06:05)
[2017-08-12] MEDS: Bisacodyl 10 MG SUPP PR SCH (09:05)
[2017-08-12] MEDS: Enoxaparin Sodium 40 MG/0.4 ML SYRINGE SC SCH (09:05)
[2017-08-12] MEDS: Polyethylene Glycol 3350 17 GM Packet PO SCH (09:06)
[2017-08-12] MEDS: Famotidine 20 MG TAB PO SCH ×2 (09:06→20:23)
[2017-08-12] MEDS: Furosemide 20 MG TAB PO SCH (09:06)
[2017-08-12] MEDS: Lisinopril 5 MG TAB PO SCH (09:06)
[2017-08-12] MEDS: Potassium Chloride 20 MEQ TAB PO SCH (09:07)
[2017-08-12] MEDS: Rosuvastatin 10 MG TAB PO SCH (09:07)
[2017-08-12] MEDS: Senokot S 8.6-50 MG TAB PO SCH ×2 (09:07→20:23)
[2017-08-12] MEDS: Insulin Regular 300 UNITS/3 ML VIAL SC PRN (14:47)
--- NOTE | 2017-08-12 17:22 | PRG ---
DATE OF SERVICE: 08/12/2017 ATTENDING PHYSICIAN: Dr. Capone. SUBJECTIVE: Ms. Carney is a 77-year-old female, who was admitted to the surgical floor after sustain ing a right hip fracture for which she is now postop day #6. She has remained hemodynamically stable and with adequate pain control. She is currently awaiting placement preferably in rehabilitation. This morning on exam, she vocalizes no complaints. OBJECTIVE: VITAL SIGNS: Blood pressure 150/76, pulse 72, temperature 98.0, respirations 14, O2 sat 94% on 2 lit ers. GENERAL APPEARANCE: The patient is a middle-aged adult female, in no acute distress. HEENT: Normocephalic and atraumatic. RESPIRATORY: Breath sounds are clear to auscultation bilaterally with normal effort. CARDIOVASCULAR: Regular rate and rhythm. No murmurs, gallops or rubs. ABDOMEN: Soft, nontender, nondistended. She has active bowel sounds. EXTREMITIES: She is neurovascularly intact x4. NEUROLOGIC: Her GCS is 15 this morning. She is alert and oriented x3. She has no focal deficits. LABORATORY DATA: Significant for elevated glucose of 219 this morning. IMAGES: There are no images to review today. ASSESSMENT: 1. Status post mechanical fall from ground level. 2. Right intertrochanteric femur fracture status post open reduction internal fixation. 3. Acute traumatic pain. 4. Right arm pain. 5. Contraction alkalosis. PLAN: 1. Continue PT and OT for mobilization. 2. We will recheck labs in the morning to monitor her alkalosis. We will withhold diuretics and enc ourage free water intake if necessary. 3. Continue Lovenox for DVT prophylaxis. 4. Continue pain control as ordered. 5. Case management is following for help with discharge planning. Currently, awaiting approval for rehabilitation. If that does not work, we will explore other options including jail or [facility]. This patient was seen and examined along with Dr. Capone on rounds, who agrees with this assessment an d plan.
[2017-08-13 04:44] LABS: #Eosinphils 0.3 thou/uL (0.0-0.7); #Lymphocytes 1.6 thou/uL (1.20-3.40); #Monocytes 0.8 thou/uL (0.11-0.59); #Neutrophils 3.2 thou/uL (1.40-6.50); %Basophils 0.3 % (0.0-1.0); %Eosinophils 4.5 % (0.0-10.0); %Lymphocytes 27.3 % (21.0-51.0); %Monocytes 12.9 % (0.0-10.0); %Neutrophils 54.9 % (42.0-75.0); Hemoglobin 10.5 g/dL (12.0-16.0); Mean Corpuscular HGB CONC 34.2 g/dL (32.0-36.0); Mean Corpuscular Hemoglobin 33.1 pg (27.0-31.0); Mean Platelet Volume 7.7 fL (7.4-10.4); Platelet Count 244 thou/uL (130-400); RBC Distribution Width 12.1 % (11.5-14.5); Red Blood Cell (RBC) Count 3.18 mill/uL (4.20-5.40); White Blood Cell (WBC) Count 5.8 thou/uL (4.8-10.8)
--- NOTE | 2017-08-13 05:20 | PRG ---
DATE OF SERVICE: 08/13/2017 SUBJECTIVE: The patient is status post open reduction internal fixation of a right hip fracture. Tim dias is currently on the surgical floor awaiting placement decision. Nurses report no issues this jass carias. PHYSICAL EXAMINATION: VITAL SIGNS: Temperature is 98 degrees. Heart rate 70, blood pressure 136/79, respirations 16, oxyg en saturation is 93% on room air. GENERAL: The patient is resting comfortably in bed. She appears in no distress. ASSESSMENT AND PLAN: 1. Status post ground level fall. 2. Status post open reduction internal fixation of hip fracture. PLAN: The plan will be continued supportive care, physical and occupational therapy and await final placement decision.
[2017-08-13 05:35] LABS: Anion Gap 8 mmol/L (10-20); BUN (Urea Nitrogen) 11 mg/dL (9.8-20.1); Calc. Creatinine Clearance 87 mL/min (70-130); Calcium 10.2 mg/dL (7.8-10.44); Carbon Dioxide 34 mmol/L (23-31); Chloride 97 mmol/L (98-107); Estimated GFR-MDRD 89; Glucose 156 mg/dL (83-110); Phosphorus 3.4 mg/dL (2.3-4.7); Potassium 4.3 mmol/L (3.5-5.1); Sodium 135 mmol/L (136-145)
[2017-08-13] MEDS: Levothyroxine Sodium 100 MCG TAB PO SCH (05:58)
[2017-08-13] MEDS: traMADol HCl 50 MG TAB PO SCH ×2 (06:00→11:45)
[2017-08-13] MEDS: Acetaminophen 500 MG TAB PO SCH ×2 (06:00→11:46)
[2017-08-13] MEDS: Polyethylene Glycol 3350 17 GM Packet PO SCH (08:59)
[2017-08-13] MEDS: Senokot S 8.6-50 MG TAB PO SCH (09:00)
[2017-08-13] MEDS: Bisacodyl 10 MG SUPP PR SCH (09:00)
[2017-08-13] MEDS: Enoxaparin Sodium 40 MG/0.4 ML SYRINGE SC SCH (09:00)
[2017-08-13] MEDS: Furosemide 20 MG TAB PO SCH (09:00)
[2017-08-13] MEDS: Lisinopril 5 MG TAB PO SCH (09:00)
[2017-08-13] MEDS: Famotidine 20 MG TAB PO SCH (09:00)
[2017-08-13] MEDS: Rosuvastatin 10 MG TAB PO SCH (09:00)
[2017-08-13] MEDS: Potassium Chloride 20 MEQ TAB PO SCH (09:00)
[2017-08-13 11:52] VITALS: BP 112/73; TEMP 98.2
--- NOTE | 2017-08-13 15:21 | DIS ---
DATE OF ADMISSION: 08/05/2017 DATE OF DISCHARGE: 08/13/2017 ADMITTING PHYSICIAN: Dr. Capone. DISCHARGING PHYSICIAN: Dr. Capone. ADMISSION DIAGNOSES: 1. Status post mechanical fall from ground level. 2. Right intertrochanteric femur fracture. 3. Acute traumatic pain. 4. Right arm pain. 5. History of diabetes, present on admission. 6. History of hypertension, present on admission. 7. History of hypothyroidism, present on admission. 8. History of gastrointestinal bleeding x2 present on admission. DISCHARGE DIAGNOSES: 1. Status post mechanical fall from ground level. 2. Right intertrochanteric femur fracture. 3. Acute traumatic pain. 4. Right arm pain. 5. History of diabetes, present on admission. 6. History of hypertension, present on admission. 7. History of hypothyroidism, present on admission. 8. History of gastrointestinal bleeding x2 present on admission. PROCEDURES PERFORMED: Open reduction and internal fixation using dynamic hip screw of right femoral neck fracture. HOSPITAL COURSE: Ms. Carney is a 77-year-old female who was in her usual state of health at [facility] when she reports that she stubbed her toe and lost her balance and fell landing on her right side. She was transported by [facility] to [facility] where she was evaluated and found to have a right impacted femoral neck fracture. Orthopedic Surgery was consulted and Trauma Service was asked to ad david. The patient underwent open reduction and internal fixation of her right hip the following day o n 08/06/[address] Abbasi. After that, she was returned to the surgical floor. She remained h emodynamically stable for the remainder of her stay. She was started on a general diet, which she to lerated well. Her pain was well controlled. She had some constipation initially which eventually re solved. She was initially thought to be a good candidate for rehabilitation, but was denied rehabili tation. She discharged to [facility] in stable condition on 08/13/2017. DISCHARGE MEDICATIONS: The patient was discharged to swing bed with all of her inpatient medications . Please see the electronic medical record for details. ACTIVITY INSTRUCTIONS: Patient has orthopedic limitations including weightbearing as tolerated. NURSING INSTRUCTIONS: Diabetic diet with supplemental Glucerna shakes. DIET: Should be 1800 kilo calories per day. THERAPY INSTRUCTIONS: Occupational and physical therapy. EQUIPMENT AND SUPPLIES: Given include walker. FOLLOWUP INSTRUCTIONS: The patient is to follow up with Dr. José Antonio Abbasi in 10 days. The p atient also instructed to follow up with her primary care physician in 7 days. This patient was seen and examined on rounds, along with Dr. Capone who agrees with this discharge ann marie fidencio
== END 2017-08-13 14:15 | disposition swing bed (61) | DRG 481 ==
LOC: ERS 11:18 → SURG B 14:47
PROVIDERS: ADMIT Surgery; ATTEND Surgery
PROC: 0QS604Z Reposition Right Upper Femur with Internal Fixation Device, Open Approach (ICD-10-PCS; principal; 2017-08-06)
DX: S72.001A Fracture of unspecified part of neck of right femur, initial encounter for closed fracture (principal); E87.3 Alkalosis; E11.9 Type 2 diabetes mellitus without complications; E03.9 Hypothyroidism, unspecified; S46.011A Strain of muscle(s) and tendon(s) of the rotator cuff of right shoulder, initial encounter; E78.5 Hyperlipidemia, unspecified; F17.210 Nicotine dependence, cigarettes, uncomplicated; I10 Essential (primary) hypertension; W01.0XXA Fall on same level from slipping, tripping and stumbling without subsequent striking against object, initial encounter; Z88.8 Allergy status to other drugs, medicaments and biological substances; S72.101A Unspecified trochanteric fracture of right femur, initial encounter for closed fracture; Z79.899 Other long term (current) drug therapy; Z79.84 Long term (current) use of oral hypoglycemic drugs; Z79.891 Long term (current) use of opiate analgesic
CPT/HCPCS: 36415; 36416; 51702; 71045; 72170; 76001; 80048; 80053; 83735; 84100; 85025; 85610; 85730; 90471; 90670; 93005; 94760; C1713; C1769; G0009; G0390; G8978-GP-CL; G8979-GP-CI; G8987-GO-CL; G8988-GO-CJ; J0131; J1650; J1815; J2001; J2270; J2704

== ENCOUNTER 2018-03-04 11:28 | Outpatient (CLI) | payer MEDICARE ==
--- NOTE | 2018-03-04 14:04 | RAD ---
RADIOGRAPH ADULT SKELETAL SURVEY EIGHTEEN VIEWS: 03/04/2018 HISTORY: A 78-year-old female with multiple myeloma, monoclonal gammopathy. FINDINGS: No definite discrete osteolytic lesion is visualized, but the diffuse osteopenia could obscure small such lesions. IMPRESSION: Negative. POS: [facility]
== END 2018-03-04 11:29 | disposition home or self-care (01) ==
LOC: BICRAD 11:28
PROVIDERS: ATTEND Internal Medicine Hematology & Oncology
DX: C90.00 Multiple myeloma not having achieved remission (principal); D47.2 Monoclonal gammopathy
CPT/HCPCS: 77075

== ENCOUNTER 2018-06-28 09:27 | Outpatient (CLI) | payer MEDICARE ==
--- NOTE | 2018-06-28 11:36 | BD ---
DEXA BONE DENSITY STUDY: HISTORY: Postmenopausal. FINDINGS: Lumbar Spine: BMD (g/cm2) L1 0.777 T-Score: -1.9 L2 0.899 T-Score: -1.2 L3 0.909 T-Score: -1.6 L4 0.942 T-Score: -1.1 L1-L4 0.888 T-Score: -1.4 Femoral Neck: 0.522 T-Score: -2.9 Total Femur: 0.682 T-Score: -2.1 Impression: 1. Osteoporosis of the left femoral neck. 2. Osteopenia of the lumbar spine. POS: [facility]
== END 2018-06-28 09:28 | disposition home or self-care (01) ==
LOC: BICMAMMO 09:27
PROVIDERS: ATTEND Internal Medicine Rheumatology
DX: M81.0 Age-related osteoporosis without current pathological fracture (principal); M85.88 Other specified disorders of bone density and structure, other site
CPT/HCPCS: 77080

== ENCOUNTER 2019-07-30 09:57 | Emergency (ER) | payer MEDICARE ==
--- NOTE | 2019-07-30 10:44 | RAD ---
RIGHT HAND THREE VIEWS: 07/30/2019 HISTORY: Fall. Pain. COMPARISON: None. FINDINGS: There is radial carpal joint space narrowing. There is moderate degenerative change at the first carp ometacarpal joint. There is joint space narrowing and osteophyte formation at the first, second and t hird metacarpophalangeal joints as well as the first interphalangeal joint of the thumb. Similar find ings are noted within the proximal and distal interphalangeal joints of the second, third, fourth and fifth fingers with central erosive change. 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 No displaced fracture or evidence of dislocation is appreciated. No radiopaque foreign kamari dy or subcutaneous gas. IMPRESSION: Chronic findings as detailed above. No acute fracture or dislocation. POS: [facility]
[2019-07-30] MEDS ORDERED: Bacitracin 1 PK ONE (11:19)
== END 2019-07-30 11:34 | disposition home or self-care (01) ==
LOC: ERS 09:57
DX: L02.511 Cutaneous abscess of right hand (principal); L03.113 Cellulitis of right upper limb; E11.9 Type 2 diabetes mellitus without complications; E78.5 Hyperlipidemia, unspecified; I10 Essential (primary) hypertension; M81.0 Age-related osteoporosis without current pathological fracture; Z79.84 Long term (current) use of oral hypoglycemic drugs; Z79.899 Other long term (current) drug therapy
CPT/HCPCS: 10060

== ENCOUNTER 2019-08-30 10:24 | Outpatient (CLI) | payer MEDICARE ==
--- NOTE | 2019-08-30 14:45 | BD ---
Exam: DEXA Bone Density 08/30/19 HISTORY: Postmenopausal screening for osteoporosis. Three views. Lumbar Spine: BMD (g/cm2) T-SCORE Z-SCORE L1 0.836 -1.1 1.2 L2 0.951 -0.7 1.3 L3 0.997 -0.8 1.9 L4 1.111 0.5 2.2 L1-L4 0.989 0.5 2.1 Left forearm: UD: 0.265 -0.1 -1.0 Mid: 0.340 -4.9 -2.0 1/3: 0.423 -4.5 -1.6 Total: 0.336 -4.5 -1.7 Impression: Osteoporosis. POS: [facility]
== END 2019-08-30 10:25 | disposition home or self-care (01) ==
LOC: BICMAMMO 10:24
PROVIDERS: ATTEND Internal Medicine Rheumatology
DX: M80.00XS Age-related osteoporosis with current pathological fracture, unspecified site, sequela (principal)
CPT/HCPCS: 77080

== ENCOUNTER 2019-11-22 12:39 | Outpatient (CLI) | payer MEDICARE ==
--- NOTE | 2019-11-22 13:01 | ULT ---
EXAM: Right lower extremity venous duplex: Deep veins evaluated with color Doppler, spectral analysis, and compression. INDICATIONS: Right lower extremity pain and edema. FINDINGS: Deep veins interrogated include common femoral vein, femoral vein, popliteal vein, and post erior tibial vein. These veins show normal compression and blood flow. No evidence of DVT. IMPRESSION: Negative Right venous duplex exam.
--- NOTE | 2019-11-22 13:25 | RAD ---
LEFT SHOULDER 3 VIEWS: HISTORY: Left shoulder pain following an injury in April. FINDINGS: Arthrosis changes of the AC joint and glenohumeral joint with a large undersurface lateral acromial spur. Right-sided old granuloma calcifications in the right hilum and perihilar region. Bone demine ralization. No acute fracture or dislocation. IMPRESSION: Arthrosis and degenerative changes left shoulder with a prominent left undersurface lateral acromial spur. No fracture or dislocation. POS: [facility]
== END 2019-11-22 12:40 | disposition home or self-care (01) ==
LOC: BICULT 12:39
PROVIDERS: ATTEND Physician Assistant
DX: R60.0 Localized edema (principal); M25.512 Pain in left shoulder; M19.012 Primary osteoarthritis, left shoulder; M77.9 Enthesopathy, unspecified

== ENCOUNTER 2021-10-22 09:22 | Emergency (ER) | payer OTHER, MEDICARE ==
[~2021-10-22 09:22] MED LIST: ISOVUE-370 76%-LOCM 1 ML ONE
[2021-10-22 10:02] LABS: #Eosinphils 0.1 thou/uL (0.0-0.7); #Lymphocytes 1.9 thou/uL (1.20-3.40); #Monocytes 0.5 thou/uL (0.11-0.59); %Eosinophils 1.5 % (0.0-10.0); %Lymphocytes 29.1 % (21.0-51.0); %Monocytes 8.1 % (0.0-10.0); %Neutrophils 61.3 % (42.0-75.0); Hemoglobin 9.9 g/dL (12.0-16.0); Mean Corpuscular Hemoglobin 27.8 pg (27.0-31.0); Platelet Count 282 thou/uL (130-400); Red Blood Cell (RBC) Count 3.58 mill/uL (4.20-5.40); White Blood Cell (WBC) Count 6.5 thou/uL (4.8-10.8)
[2021-10-22 10:17] LABS: ALT (SGPT) 13 U/L (8-55); AST (SGOT) 19 U/L (5-34); Albumin 3.9 g/dL (3.4-4.8); Alkaline Phosphatase 49 U/L (40-110); Anion Gap 13 mmol/L (10-20); BUN (Urea Nitrogen) 8 mg/dL (9.8-20.1); Bilirubin, Total 0.3 mg/dL (0.2-1.2); Calc. Creatinine Clearance 0 mL/min (70-130); Calcium 9.6 mg/dL (7.8-10.44); Carbon Dioxide 26 mmol/L (23-31); Chloride 100 mmol/L (98-107); Estimated GFR 87; Globulin 3.2 g/dL (2.4-3.5); Glucose 138 mg/dL (83-110); Lipase 59 U/L (8-78); Potassium 4.2 mmol/L (3.5-5.1); Protein, Total 7.1 g/dL (5.8-8.1); Sodium 135 mmol/L (136-145)
[2021-10-22] MEDS ORDERED: Morphine 4 MG/ML VIAL ONE (12:27)
[2021-10-22] MEDS ORDERED: Acetaminophen 500 MG TAB ONE (12:28)
[2021-10-22] MEDS ORDERED: Lidocaine 1% PF 5 ML VIAL ONE (12:30)
== END 2021-10-22 14:32 | disposition home or self-care (01) ==
LOC: ERS 09:22
DX: S62.232A Other displaced fracture of base of first metacarpal bone, left hand, initial encounter for closed fracture (principal); E11.9 Type 2 diabetes mellitus without complications; E78.5 Hyperlipidemia, unspecified; I10 Essential (primary) hypertension; V89.2XXA Person injured in unspecified motor-vehicle accident, traffic, initial encounter
CPT/HCPCS: 26605; 70450; 71260; 72125; 74177; 80053; 83690; 84484; 85025; 93005; 96374; G0390; J2270; Q9966

== ENCOUNTER 2021-10-28 09:07 | Emergency (ER) | payer MEDICARE ==
[2021-10-28] MEDS ORDERED: Nitroglycerin 2% Ointment 1 INCH/1 GM Packet ONE (09:36)
[2021-10-28 09:51] LABS: #Eosinphils 0.2 thou/uL (0.0-0.7); #Lymphocytes 1.1 thou/uL (1.20-3.40); #Monocytes 0.8 thou/uL (0.11-0.59); #Neutrophils 5.4 thou/uL (1.40-6.50); %Basophils 0.1 % (0.0-1.0); %Eosinophils 2.6 % (0.0-10.0); %Lymphocytes 15.1 % (21.0-51.0); %Neutrophils 71.2 % (42.0-75.0); Hemoglobin 9.5 g/dL (12.0-16.0); Mean Corpuscular HGB CONC 30.5 g/dL (32.0-36.0); Mean Corpuscular Hemoglobin 26.6 pg (27.0-31.0); Mean Platelet Volume 7.5 fL (7.4-10.4); Platelet Count 285 thou/uL (130-400); RBC Distribution Width 14.9 % (11.5-14.5); Red Blood Cell (RBC) Count 3.59 mill/uL (4.20-5.40); White Blood Cell (WBC) Count 7.5 thou/uL (4.8-10.8)
[2021-10-28 10:03] LABS: ALT (SGPT) 12 U/L (8-55); AST (SGOT) 15 U/L (5-34); Albumin 4.3 g/dL (3.4-4.8); Alkaline Phosphatase 53 U/L (40-110); Anion Gap 16 mmol/L (10-20); BUN (Urea Nitrogen) 13 mg/dL (9.8-20.1); Bilirubin, Total 0.4 mg/dL (0.2-1.2); CK (CPK) 45 U/L (29-168); Calc. Creatinine Clearance 0 mL/min (70-130); Calcium 10.6 mg/dL (7.8-10.44); Carbon Dioxide 29 mmol/L (23-31); Chloride 98 mmol/L (98-107); Estimated GFR 84; Globulin 3.7 g/dL (2.4-3.5); Glucose 150 mg/dL (83-110); Lipase 47 U/L (8-78); Potassium 4.6 mmol/L (3.5-5.1); Sodium 138 mmol/L (136-145)
[2021-10-28] MEDS ORDERED: Morphine 2 MG/ML VIAL ONE (10:12)
[2021-10-28] MEDS ORDERED: Ketorolac Tromethamine 30 MG/ML VIAL ONE (10:13)
[2021-10-28] MEDS ORDERED: Lorazepam 1 MG TAB ONE (10:22)
== END 2021-10-28 11:26 | disposition home or self-care (01) ==
LOC: ERS 09:07
DX: R07.89 Other chest pain (principal); E11.9 Type 2 diabetes mellitus without complications; E78.5 Hyperlipidemia, unspecified; I10 Essential (primary) hypertension
CPT/HCPCS: 71045; 80053; 82550; 83690; 83880; 84484; 85025; 93005; 96361; 96374; 96375; 99284; J2270; J1885

== ENCOUNTER 2022-07-17 15:49 | Emergency (ER) | payer MEDICARE ==
[2022-07-17] MEDS ORDERED: HYDROcodone/Acetaminophen 5/325 mg Tablet ONE (19:39)
== END 2022-07-17 20:05 | disposition home or self-care (01) ==
LOC: ERS 15:49
DX: S82.041A Displaced comminuted fracture of right patella, initial encounter for closed fracture (principal); E11.9 Type 2 diabetes mellitus without complications; E78.00 Pure hypercholesterolemia, unspecified; I10 Essential (primary) hypertension; W19.XXXA Unspecified fall, initial encounter; Z79.84 Long term (current) use of oral hypoglycemic drugs

== ENCOUNTER 2023-01-30 11:54 | Outpatient (CLI) | payer MEDICARE | END 2023-01-30 11:55 | disposition home or self-care (01) | LOC: BICRAD 11:54 | PROVIDERS: ATTEND Family Medicine | DX: S69.92XA Unspecified injury of left wrist, hand and finger(s), initial encounter (principal) | CPT/HCPCS: 36415; 80053; 80061; 82043; 83036; 84443; 84550 ==

== ENCOUNTER 2023-09-09 10:51 | Outpatient (CLI) | payer MEDICARE ==
[2023-09-09 13:30] LABS: #Basophils 0.04 10x3/uL (0.0-0.2); #Eosinphils 0.11 10x3/uL (0.0-0.5); #Monocytes 0.56 10x3/uL (0.0-1.1); #Neutrophils 4.29 10x3/uL (1.5-8.4); %Basophils 0.6 % (0.0-2.0); %Eosinophils 1.7 % (0.0-6.0); %Lymphocytes 21.5 % (18.0-47.0); %Monocytes 8.7 % (0.0-10.0); Hematocrit 37.5 % (34.9-44.5); Hemoglobin 12.1 g/dL (12.0-15.5); Mean Corpuscular HGB CONC 32.3 g/dL (32.0-36.0); Mean Corpuscular Hemoglobin 31.9 pg (27.0-33.0); Mean Corpuscular Volume 98.9 fl (81.6-98.3); Mean Platelet Volume 9.6 fl (7.4-10.4); Platelet Count 314 10x3/uL (150-450); RBC Distribution Width 12.2 % (11.5-14.5); Red Blood Cell (RBC) Count 3.79 10x6/uL (3.90-5.03); White Blood Cell (WBC) Count 6.4 10x3/uL (3.5-10.5)
[2023-09-09 13:36] LABS: Anion Gap 15 mmol/L (10-20); BUN (Urea Nitrogen) 11 mg/dL (9.8-20.1); Calc. Creatinine Clearance 0 mL/min (70-130); Calcium 10.2 mg/dL (7.8-10.44); Carbon Dioxide 27 mmol/L (23-31); Chloride 99 mmol/L (98-107); Estimated GFR 82; Glucose 109 mg/dL (83-110); Potassium 4.5 mmol/L (3.5-5.1); Sodium 136 mmol/L (136-145)
== END 2023-09-09 10:52 | disposition home or self-care (01) ==
LOC: LABBT 10:51
PROVIDERS: ATTEND Surgery
DX: Z01.818 Encounter for other preprocedural examination (principal); K43.9 Ventral hernia without obstruction or gangrene
CPT/HCPCS: 80048; 85025; 93005; 93010

== ENCOUNTER 2023-09-16 07:52 | Day surgery (SDC) | payer MEDICARE ==
[2023-09-09 12:41] VITALS: BMI 23.8
[2023-09-16] MEDS ORDERED: CEFAZOLIN 2 GM VIAL ONE (09:39)
[2023-09-16] MEDS ORDERED: Lidocaine 1% MPF 2 ML VIAL ONE (09:39)
[2023-09-16] MEDS ORDERED: Sodium Chloride 0.9% 100 ML ONE (09:39)
[2023-09-16] MEDS ORDERED: fentaNYL PF 100 MCG/2 ML SYRINGE ONE (09:56)
[2023-09-16] MEDS ORDERED: PROPOFOL 20 ML ONE (09:56)
[2023-09-16] MEDS ORDERED: Lidocaine 1% PF 5 ML VIAL ONE (09:56)
[2023-09-16] MEDS ORDERED: Rocuronium Bromide 10 MG/ML (10ML VIAL) ONE (09:56)
[2023-09-16] MEDS ORDERED: EPINEPHrine 1 MG/ML VIAL ONE (10:11)
[2023-09-16] MEDS ORDERED: Bupivacaine 0.25% HCL 30 ML VIAL ONE (10:11)
[2023-09-16] MEDS ORDERED: Glycopyrrolate 0.2 MG/ML 5 ML SYRINGE ONE (12:20)
[2023-09-16] MEDS ORDERED: SUGAMMADEX SODIUM 200 MG/2 ML VIAL ONE (12:47)
[2023-09-16] MEDS ORDERED: Ondansetron PF 4 MG/2 ML Vial ONE (12:48)
[2023-09-16] MEDS ORDERED: fentaNYL 50 mcg/mL 1 mL Vial ONE ×5 (13:15→14:59)
== END 2023-09-16 16:00 | disposition home or self-care (01) ==
LOC: SDC 07:52
PROVIDERS: ATTEND Surgery
PROC: 0WUF4JZ Supplement Abdominal Wall with Synthetic Substitute, Percutaneous Endoscopic Approach (ICD-10-PCS; principal; 2023-09-16)
DX: K43.9 Ventral hernia without obstruction or gangrene (principal); I10 Essential (primary) hypertension; E78.2 Mixed hyperlipidemia; E03.9 Hypothyroidism, unspecified; E11.9 Type 2 diabetes mellitus without complications; Z79.890 Hormone replacement therapy; Z88.6 Allergy status to analgesic agent; Z79.899 Other long term (current) drug therapy; Z79.84 Long term (current) use of oral hypoglycemic drugs; Z87.891 Personal history of nicotine dependence; Z90.49 Acquired absence of other specified parts of digestive tract
CPT/HCPCS: 49593; J0171; J3010; C1781; J0665; J2405; J2704; J3490

== ENCOUNTER 2024-03-24 09:00 | Outpatient (CLI) | payer MEDICARE ==
[2024-03-24] MEDS ORDERED: Magnevist 469MG/ML 20 ML VIAL ONE (10:17)
== END 2024-03-24 16:00 | disposition home or self-care (01) ==
LOC: MRI 09:00
PROVIDERS: ATTEND Psychiatry & Neurology Neurology
DX: R51.9 Headache, unspecified (principal); R90.82 White matter disease, unspecified; G93.89 Other specified disorders of brain
CPT/HCPCS: 70553; 76376

== ENCOUNTER 2024-10-19 11:29 | Outpatient (CLI) | payer MEDICARE | END 2024-10-19 11:30 | disposition home or self-care (01) | LOC: BICMAMMO 11:29 | PROVIDERS: ATTEND Family Medicine | DX: M81.0 Age-related osteoporosis without current pathological fracture (principal) | CPT/HCPCS: 77080 ==